=== PATIENT | female | born 1985 | race African-American/Black ===

== ENCOUNTER 2019-04-06 10:45 | Emergency (ER) | payer OTHER ==
[2019-04-06 10:52] VITALS: BP 113/65; PULSE 68; TEMP 98; BMI 35.2
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
[2019-04-06] MEDS ORDERED: CYCLOBENZAPRINE HCL 10 MG TABLET (FP) PO ONE (11:22)
[2019-04-06] MEDS ORDERED: KETOROLAC TROMETHAMINE 30 MG/1 ML VIAL IM ONE (11:22)
[2019-04-06] MEDS ORDERED: CYCLOBENZAPRINE HCL 10 MG TABLET (FP) ONE (11:27)
[2019-04-06] MEDS ORDERED: KETOROLAC TROMETHAMINE 30 MG/1 ML VIAL ONE (11:28)
== END 2019-04-06 11:45 | disposition home or self-care (01) ==
LOC: JERFT 10:45
PROC: 3E0233Z Introduction of Anti-inflammatory into Muscle, Percutaneous Approach (ICD-10-PCS; principal; 2019-04-06)
DX: M25.512 Pain in left shoulder (principal); M54.5 Low back pain; V43.52XA Car driver injured in collision with other type car in traffic accident, initial encounter; Y92.414 Local residential or business street as the place of occurrence of the external cause; Y93.89 Activity, other specified; Y99.8 Other external cause status; Z86.2 Personal history of diseases of the blood and blood-forming organs and certain disorders involving the immune mechanism
CPT/HCPCS: 99281-25